=== PATIENT | female | born 1955 | race Caucasian/White ===

== ENCOUNTER 2017-01-11 09:12 | Emergency (ER) | payer OTHER ==
[2017-01-11] MEDS ORDERED: Sodium Chloride 0.9% 1,000 ML IV ONE (09:27)
[2017-01-11] MEDS ORDERED: Ondansetron 4 MG/2 ML SDV IVPUSH SCH (09:30)
--- NOTE | 2017-01-11 09:43 | EDM.PDOC ---
ED HPI GENERAL MEDICAL PROBLEM - General Chief Complaint: Gastrointestinal Problem Stated Complaint: nausea/vomiting Time Seen by Provider: 01/11/17 09:15 Source of Information: Reports: Patient History Limitations: Reports: No Limitations - History of Present Illness INITIAL COMMENTS - FREE TEXT/NARRATIVE: 61 YO Female with PMH of COPD presents to ER with flu like symptoms with nausea and vomiting which started yesterday. Pt was seen in clinic yesterday and given IVF due to diarrhea and feeling weak. Pt had lab work and was sent home on levaquin for suspected pneumonia. Pt reports after taking that medicine her symptoms became worse and she began vomiting. Pt reports increased shortness of breath for 2 days requiring increased use of her nebulizer. Pt with fever of 102 in clinic yesterday. Pt reports mild right sided pleuritic pain. Onset Date: 01/10/17 Onset Time: 07:00 Duration: Day(s): (2) Severity: Mild Improves with: Reports: None Worsens with: Reports: Breathing Associated Symptoms: Reports: Fever/Chills, Nausea/Vomiting, Shortness of Breath , Weakness - Related Data Allergies Allergy/AdvReac Type Severity Reaction Status Date / Time No Known Drug Allergies Allergy Cannot Verified 01/11/17 09:26 Remember Home Meds: Home Meds Ipratropium/Albuterol Sulfate [Iprat-Albut 0.5-3(2.5) mg/3 ml] 1 ampule INH Q4HR PRN 06/01/16 [History] Albuterol [Ventolin HFA] 1 gm INH Q4H PRN 01/11/17 [History] Doxycycline [Vibramycin] 100 mg PO Q12HR #20 cap 01/11/17 [Rx] Ondansetron [Zofran ODT] 4 mg PO Q8H PRN #10 tab.dis 01/11/17 [Rx] Past Medical History Musculoskeletal History: Reports: Back Pain, Chronic Social & Family History - Tobacco Use Smoking Status *Q: Current Every Day Smoker Years of Tobacco use: 20 Packs/Tins Daily: 0.5 - Caffeine Use Caffeine Use: Reports: Coffee ED ROS GENERAL - Review of Systems Review Of Systems: See Below Constitutional: Reports: Fever, Chills, Malaise HEENT: Reports: No Symptoms Respiratory: Reports: Shortness of Breath Cardiovascular: Reports: No Symptoms Endocrine: Reports: No Symptoms GI/Abdominal: Reports: Diarrhea, Nausea, Vomiting : Reports: No Symptoms Musculoskeletal: Reports: No Symptoms Skin: Reports: No Symptoms Neurological: Reports: No Symptoms Psychiatric: Reports: No Symptoms Hematologic/Lymphatic: Reports: No Symptoms Immunologic: Reports: No Symptoms ED EXAM, GENERAL - Physical Exam Exam: See Below Exam Limited By: No Limitations General Appearance: Alert, WD/WN, No Apparent Distress Ears: Normal External Exam, Normal Canal, Hearing Grossly Normal, Normal TMs Ear Exam: Bilateral Ear: Auricle Normal, Canal Normal, TM normal Nose: Normal Inspection, Normal Mucosa, No Blood Throat/Mouth: Normal Inspection, Normal Lips, Normal Teeth, Normal Gums, Normal Oropharynx, Normal Voice, No Airway Compromise Head: Atraumatic, Normocephalic Neck: Normal Inspection, Supple, Non-Tender, Full Range of Motion Respiratory/Chest: No Respiratory Distress, Lungs Clear, Normal Breath Sounds, No Accessory Muscle Use, Chest Non-Tender Cardiovascular: Normal Peripheral Pulses, Regular Rate, Rhythm, No Edema, No Gallop, No JVD, No Murmur, No Rub GI/Abdominal: Normal Bowel Sounds, Soft, Non-Tender, No Organomegaly, No Distention, No Abnormal Bruit, No Mass Back Exam: Normal Inspection, Full Range of Motion, NT Extremities: Normal Inspection, Normal Range of Motion, Non-Tender, Normal Capillary Refill, No Pedal Edema Neurological: Alert, Oriented, CN II-XII Intact, Normal Cognition, Normal Gait, Normal Reflexes, No Motor/Sensory Deficits Psychiatric: Normal Affect, Normal Mood Skin Exam: Warm, Dry, Intact, Normal Color, No Rash Lymphatic: No Adenopathy Course - Vital Signs Last Recorded V/S: Last Vital Signs Temp 37.1 C 01/11/17 09:48 Pulse 90 01/11/17 10:00 Resp 18 01/11/17 10:00 BP 127/87 01/11/17 10:00 Pulse Ox 90 L 01/11/17 10:00 - Orders/Labs/Meds Orders: Active Orders 24 hr Category Date Time Status Chest 2V [CR] Stat Exams 01/11/17 09:28 Taken URINALYSIS W/O MICROSCOPIC [UA W/O MICROSCOPIC] [URIN] Lab 01/11/17 10:18 Results Stat Ondansetron [Zofran] Med 06/03/17 09:30 Active 4 mg IVPUSH ONETIME Medication Orders Ondansetron HCl (Zofran) 4 mg IVPUSH ONETIME RUPERT Last Admin: 01/11/17 09:37 Dose: 4 mg Labs: Laboratory Tests 01/11/17 01/11/17 01/11/17 Range/Units 09:22 09:22 10:18 WBC 7.4 (5.0-10.0) 10^3/uL RBC 5.16 (3.80-5.50) 10^6/uL Hgb 14.9 (12.0-16.0) g/dL Hct 43.7 (37.0-47.0) % MCV 84.7 (82.0-92.0) fL MCH 28.9 (27.0-31.0) pg MCHC 34.2 (32.0-36.0) g/dL RDW 12.3 (11.5-14.5) % Plt Count 149 L (150-300) 10^3/uL MPV 9.6 (7.4-10.4) fL Neut % (Auto) 79.2 H (50.0-70.0) % Lymph % (Auto) 11.5 L (20.0-40.0) % [place] % (Auto) 8.8 H (2.0-8.0) % Eos % (Auto) 0.1 L (1.0-3.0) % Baso % (Auto) 0.4 (0.0-1.0) % Neut # (Auto) 5.8 (2.5-7.0) 10^3/uL Lymph # (Auto) 0.9 L (1.0-4.0) 10^3/uL [place] # (Auto) 0.7 (0.1-0.8) 10^3/uL Eos # (Auto) 0.0 L (0.1-0.3) 10^3/uL Baso # (Auto) 0.0 (0.0-0.1) 10^3/uL Sodium 137 (136-145) mmol/L Potassium 3.2 L (3.3-5.3) mmol/L Chloride 102 (98-115) mmol/L Carbon Dioxide 24.1 (21.0-32.0) mmol/L BUN 11 (6-25) mg/dL Creatinine 0.57 (0.51-1.17) mg/dL Est Cr Clr Drug Dosing 91.77 mL/min Estimated GFR (MDRD) > 60 mL/min Glucose 172 H (70-110) mg/dL Calcium 8.5 L (8.7-10.3) mg/dL Total Bilirubin 0.4 (0.2-1.0) mg/dL AST 37 (15-37) U/L ALT 33 (12-78) U/L Alkaline Phosphatase 58 (46-116) IU/L Total Protein 7.4 (6.4-8.2) g/dL Albumin 3.70 (3.00-4.80) g/dL Lipase 112 (73-393) U/L Urine Color Yellow (YELLOW) Urine Appearance Clear (CLEAR) Urine pH 6.0 (5.0-9.0) Ur Specific [place] 1.025 (1.005-1.030) Urine Protein Negative (NEGATIVE) mg/dL Urine Glucose (UA) Negative (NEGATIVE) mg/dL Urine Ketones 40 H (NEGATIVE) mg/dL Urine Occult Blood Moderate H (NEGATIVE) Urine Nitrite Negative (NEGATIVE) Urine Bilirubin Negative (NEGATIVE) Urine Urobilinogen 0.2 (0.2-1.0) E.U./dL Ur Leukocyte Esterase Negative (NEGATIVE) Meds: Medications Generic Name Dose Route Start Last Admin Trade Name Freq PRN Reason Stop Dose Admin Ondansetron HCl 4 mg 01/11/17 09:30 01/11/17 09:37 Zofran IVPUSH 4 mg ONETIME RUPERT Administration Discontinued Medications Generic Name Dose Route Start Last Admin Trade Name Freq PRN Reason Stop Dose Admin Sodium Chloride 1,000 mls @ 999 mls/hr 01/11/17 09:27 01/11/17 09:37 Normal Saline IV 01/11/17 10:27 999 mls/hr .BOLUS ONE Administration Ondansetron HCl 4 mg 01/11/17 10:29 01/11/17 10:31 Zofran IVPUSH 01/11/17 10:30 4 mg ONETIME ONE Administration - Radiology Interpretation Free Text/Narrative:: CXR- right lower lobe infiltrate Departure - Departure Time of Disposition: 11:00 Disposition: Home, Self-Care 01 Condition: good Clinical Impression: Pneumonia Qualifiers: Pneumonia type: due to unspecified organism Laterality: right Lung location: lower lobe of lung Qualified Code(s): J18.1 - Lobar pneumonia, unspecified organism Vomiting Qualifiers: Vomiting Intractability: unspecified Nausea presence: with nausea - Discharge Information Prescriptions: Doxycycline [Vibramycin] 100 mg PO Q12HR #20 cap Ondansetron [Zofran ODT] 4 mg PO Q8H PRN #10 tab.dis PRN Reason: Vomiting Instructions: Nausea and Vomiting, Adult, [id number], Community-Acquired Pneumonia, Adult Referrals: Adela Hauser PA-C [Primary Care Provider] - - My Orders Last 24 Hours: My Active Orders 01/11/17 09:28 Chest 2V [CR] Stat 01/11/17 09:30 Ondansetron [Zofran] 4 mg IVPUSH ONETIME 01/11/17 10:18 URINALYSIS W/O MICROSCOPIC [UA W/O MICROSCOPIC] [URIN] Stat - Assessment/Plan Last 24 Hours: My Active Orders 01/11/17 09:28 Chest 2V [CR] Stat 01/11/17 09:30 Ondansetron [Zofran] 4 mg IVPUSH ONETIME 01/11/17 10:18 URINALYSIS W/O MICROSCOPIC [UA W/O MICROSCOPIC] [URIN] Stat Assessment:: 1. Right lower lobe pneumonia 2. vomiting- resolved 3. fever Plan: 1. discharge home 2. hold levaquin 3. start doxycycline 100mg PO BID x 10 days 4. zofran ODT 4mg SL TID PRN 5. push fluids 6. follow up with clinic in 2 days for recheck 7. return to ER for worsening symptoms
[2017-01-11 10:00] LABS: CHLORIDE,CL 102 mmol/L (98-115); SODIUM,NA 137 mmol/L (136-145)
[2017-01-11 10:01] VITALS: BP 127/87
[2017-01-11] MEDS ORDERED: Ondansetron 4 MG/2 ML SDV IVPUSH ONE (10:29)
== END 2017-01-11 11:30 | disposition home or self-care (01) ==
LOC: KA.ED 09:12
DX: J18.9 Pneumonia, unspecified organism (principal); R11.2 Nausea with vomiting, unspecified; F17.210 Nicotine dependence, cigarettes, uncomplicated
CPT/HCPCS: 71020; 80053; 81003; 83690; 85025; 96361; 96374; 96376; 99284; J2405; J7030

== ENCOUNTER 2019-02-02 00:04 | Emergency (ER) | payer OTHER ==
[2019-02-02 00:36] VITALS: BP 172/96
--- NOTE | 2019-02-02 00:44 | EDM.PDOC ---
ED HPI GENERAL MEDICAL PROBLEM - General Chief Complaint: Respiratory Problem Stated Complaint: Hemoptysis Time Seen by Provider: 02/02/19 00:30 Source of Information: Reports: Patient History Limitations: Reports: No Limitations - History of Present Illness INITIAL COMMENTS - FREE TEXT/NARRATIVE: 63 YO WF presents to ER complaining of pink tinged sputum which began earlier today. Pt with history of tobacco use and COPD. Pt reports episodes began around 3pm and continued throughout the evening. Pt denies any gross hematuria. Pt denies any fever/chills, no shortness of breath, no chest pain. Pt states she has albuterol nebs at home but can't remember the last time she needed her rescue inhaler or nebs. Onset: Today Duration: Hour(s): (10) Severity: Mild Improves with: Reports: None Worsens with: Reports: None Associated Symptoms: Reports: Cough, cough w sputum. Denies: Chest Pain, Fever/ Chills, Malaise, Nausea/Vomiting, Shortness of Breath, Syncope, Weakness - Related Data Allergies Allergy/AdvReac Type Severity Reaction Status Date / Time codeine Allergy Tachycardia Verified 02/02/19 00:13 Home Meds: Home Meds Ipratropium/Albuterol Sulfate [Iprat-Albut 0.5-3(2.5) mg/3 ml] 1 ampule INH Q4HR PRN 06/01/16 [History] Albuterol [Ventolin HFA] 1 gm INH Q4H PRN 01/11/17 [History] Azithromycin [Zithromax] 250 mg PO DAILY #6 tab 02/02/19 [Rx] Past Medical History HEENT History: Reports: Impaired Vision Respiratory History: Reports: COPD Genitourinary History: Reports: Urinary Incontinence [employer] History: Reports: Musculoskeletal History: Reports: Back Pain, Chronic Oncologic (Cancer) History: Reports: Uterine - Past Surgical History HEENT Surgical History: Reports: None Respiratory Surgical History: Reports: None Female Surgical History: Reports: Section Musculoskeletal Surgical History: Reports: None Social & Family History - Caffeine Use Caffeine Use: Reports: Coffee ED ROS GENERAL - Review of Systems Review Of Systems: See Below Constitutional: Reports: No Symptoms HEENT: Reports: No Symptoms Respiratory: Reports: Cough, Sputum, Hemoptysis. Denies: Shortness of Breath, Wheezing, Pleuritic Chest Pain Cardiovascular: Reports: No Symptoms Endocrine: Reports: No Symptoms GI/Abdominal: Reports: No Symptoms : Reports: No Symptoms Musculoskeletal: Reports: No Symptoms Skin: Reports: No Symptoms Neurological: Reports: No Symptoms Psychiatric: Reports: No Symptoms Hematologic/Lymphatic: Reports: No Symptoms Immunologic: Reports: No Symptoms ED EXAM, GENERAL - Physical Exam Exam: See Below Exam Limited By: No Limitations General Appearance: Alert, WD/WN, No Apparent Distress Nose: Normal Inspection, Normal Mucosa, No Blood Throat/Mouth: Normal Inspection, Normal Lips, Normal Teeth, Normal Gums, Normal Oropharynx, Normal Voice, No Airway Compromise Head: Atraumatic, Normocephalic Neck: Normal Inspection, Supple, Non-Tender, Full Range of Motion Respiratory/Chest: No Respiratory Distress, Lungs Clear, Normal Breath Sounds, No Accessory Muscle Use, Chest Non-Tender Cardiovascular: Normal Peripheral Pulses, Regular Rate, Rhythm, No Edema, No Gallop, No JVD, No Murmur, No Rub GI/Abdominal: Normal Bowel Sounds, Soft, Non-Tender, No Organomegaly, No Distention, No Abnormal Bruit, No Mass Back Exam: Normal Inspection, Full Range of Motion, NT Extremities: Normal Inspection, Normal Range of Motion, Non-Tender, Normal Capillary Refill, No Pedal Edema Neurological: Alert, Oriented, CN II-XII Intact, Normal Cognition, Normal Gait, Normal Reflexes, No Motor/Sensory Deficits Psychiatric: Normal Affect, Normal Mood Skin Exam: Warm, Dry, Intact, Normal Color, No Rash Lymphatic: No Adenopathy Course - Vital Signs Last Recorded V/S: Last Vital Signs Temp 36.1 C 02/02/19 00:05 Pulse 80 02/02/19 00:05 Resp 18 02/02/19 00:05 BP 196/106 H 02/02/19 00:05 Pulse Ox 93 L 02/02/19 00:05 Departure - Departure Time of Disposition: 00:49 Disposition: Home, Self-Care 01 Condition: Good Clinical Impression: Hemoptysis Acute bronchitis Qualifiers: Bronchitis organism: other organism Qualified Code(s): J20.8 - Acute bronchitis due to other specified organisms - Discharge Information Prescriptions: Azithromycin [Zithromax] 250 mg PO DAILY #6 tab Instructions: Hemoptysis, [id number], Acute Bronchitis, Adult, [id number] Referrals: Angeline Shafer PA-C [Physician] - Additional Instructions: 1. discharge home 2. z-pack 3. albuterol nebs Q4 and PRN 4. sputum cultures pending 5. follow up with Angeline Shafer this week for further evaluation and treatment 6. return to ER for worsening symptoms - Assessment/Plan Assessment:: 1. acute bronchitis 2. hemoptysis- mild Plan: 1. discharge home 2. z-pack 3. albuterol nebs Q4 and PRN 4. sputum cultures pending 5. follow up with Angeline Shafer this week for further evaluation and treatment 6. return to ER for worsening symptoms
[2019-02-02] MEDS: Azithromycin 250 MG Tab PO SCH (00:46)
[2019-02-02] MEDS: Azithromycin 250 MG Tab ONE (01:18)
== END 2019-02-02 00:55 | disposition home or self-care (01) ==
LOC: KA.ED 00:04
DX: J20.8 Acute bronchitis due to other specified organisms (principal); R04.2 Hemoptysis; J44.9 Chronic obstructive pulmonary disease, unspecified; Z88.5 Allergy status to narcotic agent
CPT/HCPCS: 87070; 87205; 99283; A9270-GY

== ENCOUNTER 2024-02-27 15:18 | Emergency (ER) | payer OTHER ==
[2024-02-27 15:38] VITALS: BP 114/81; PULSE 98
[2024-02-28] MEDS: Lidocaine 1% 20 ML MDV INJECT ONE (15:42)
== END 2024-02-27 16:08 | disposition home or self-care (01) ==
LOC: KA.ED 15:18
DX: S61.213A Laceration without foreign body of left middle finger without damage to nail, initial encounter (principal); J44.9 Chronic obstructive pulmonary disease, unspecified; Z88.5 Allergy status to narcotic agent; W26.0XXA Contact with knife, initial encounter
CPT/HCPCS: 12001; 99282